=== PATIENT | female | born 1985 | race Caucasian/White ===

== ENCOUNTER 2017-01-21 19:47 | Emergency (ER) | payer OTHER ==
[~2017-01-21] VITALS: Ht 162.6 cm; Wt 109.1 kg
[2017-01-21] MEDS ORDERED: HUMLIS7525 SQ (20:09)
[2017-01-21] MEDS ORDERED: LISI-662 PO (20:09)
[2017-01-21] MEDS ORDERED: METF850T2 PO (20:09)
[2017-01-21] MEDS ORDERED: LEVE500T53 PO (20:09)
[2017-01-21] MEDS ORDERED: TOPI100T37 PO (20:09)
[2017-01-21] MEDS ORDERED: INSLAN SQ (20:09)
[2017-01-21 20:13] LABS: GLUCOSE COMMENT 1 Repeated; GLUCOSE,POINT OF CARE 535 MG/DL (70-110)
[2017-01-21 20:30] LABS: BASOPHILS % (AUTO) 0.3 % (0.0-2.0); EOSINOPHILS % (AUTO) 0.6 % (1.0-6.0); HEMATOCRIT 35.5 % (36-46); HEMOGLOBIN 12.3 g/dL (12.0-16.0); LYMPHOCYTES # (AUTO) 2.3 K/uL (1.0-4.8); LYMPHOCYTES % (AUTO) 30.2 % (22.0-44.0); MEAN CORPUSCULAR HEMOGLOBIN 29.6 pg (26.0-34.0); MEAN CORPUSCULAR HGB CONC 34.6 G/dL (31.0-37.0); MEAN CORPUSCULAR VOLUME 86 fL (80-100); MONOCYTES # (AUTO) 0.5 K/uL (0.1-1.0); MONOCYTES % (AUTO) 5.9 % (2.0-9.0); NEUTROPHILS # (AUTO) 4.8 K/uL (1.8-7.7); PLATELET COUNT (AUTO) 196 K/uL (150-450); RED BLOOD CELL COUNT(AUTO) 4.14 MIL/uL (4.00-5.20); RED CELL DISTRIBUTION WIDTH 13.7 % (11.5-14.5); WHITE BLOOD COUNT (AUTO) 7.7 K/uL (4.5-11.0)
[2017-01-21 21:19] LABS: APPEARANCE,URINE CLEAR (CLEAR); GLUCOSE, URINE (UA) >=1000 mg/dL (NEGATIVE); KETONES,URINE NEGATIVE (NEGATIVE); LEUKOCYTE ESTERASE ,URINE NEGATIVE (NEGATIVE); OCCULT BLOOD,URINE NEGATIVE (NEGATIVE); PROTEIN,URINE NEGATIVE (NEGATIVE)
[2017-01-21 21:23] LABS: ADD UA MICROSCOPIC YES
[2017-01-21 21:26] LABS: ALBUMIN 3.6 g/dL (3.4-5.0); BILIRUBIN,TOTAL 0.3 mg/dL (0.1-1.0); CREATININE 1.14 mg/dL (0.60-1.30); POTASSIUM 4.9 mmol/L (3.5-5.1); TOTAL PROTEIN, SERUM 7.5 g/dL (6.4-8.2)
[2017-01-21 21:40] LABS: SQUAMOUS EPITHELIAL CELL,UR Few /LPF (None Seen)
[2017-01-21 21:42] LABS: RBC,URINE 0-2 /HPF (0-2); WBC,URINE 0-2 /HPF (0-5)
[2017-01-21] MEDS ORDERED: INSULIN REGULAR, HUMAN 100 UNITS/ML SQ ONE (22:45)
[2017-01-22 00:28] LABS: GLUCOSE,POINT OF CARE 488 MG/DL (70-110)
[2017-01-22 00:34] VITALS: BP 135/90
== END 2017-01-22 00:37 | disposition home or self-care (01) ==
LOC: EMS 19:50
DX: R10.9 Unspecified abdominal pain (principal); E11.65 Type 2 diabetes mellitus with hyperglycemia; I10 Essential (primary) hypertension; Z79.4 Long term (current) use of insulin; Z87.442 Personal history of urinary calculi
CPT/HCPCS: 36415; 80053; 81001; 82962; 84703; 85025; 87086; 96372; 99284; J1815

== ENCOUNTER 2017-07-30 10:02 | Emergency (ER) | payer OTHER ==
[~2017-07-30] VITALS: Ht 162.6 cm; Wt 10.1 kg
[~2017-07-30 10:02] MED LIST: HUMLIS7525 SQ; INSLAN SQ; LEVE500T53 PO; LISI-662 PO; METF850T2 PO; TOPI100T37 PO
[2017-07-30] MEDS ORDERED: ENOX30DI5 SQ (10:10)
[2017-07-30] MEDS ORDERED: SODIUM CHLORIDE 0.9% 1,000 ML IV ONE (10:30)
[2017-07-30] MEDS ORDERED: LevETIRAcetam 1,000 MG in DEXTROSE 5%-WATER 100 ML IV ONE (10:30)
[2017-07-30] MEDS ORDERED: TraMADol HCL 50 MG TABLET PO ONE (10:30)
[2017-07-30] MEDS ORDERED: INSULIN REGULAR, HUMAN 100 UNITS/ML IVP ONE (10:30)
[2017-07-30 10:51] LABS: AMPHET/METH SCREEN,URINE NEGATIVE (NEGATIVE); BARBITURATE SCREEN, URINE NEGATIVE (NEGATIVE); BENZODIAZEPINES SCREEN,URINE NEGATIVE (NEGATIVE); CANNABINOID SCREEN,URINE NEGATIVE (NEGATIVE); COCAINE SCREEN,URINE NEGATIVE (NEGATIVE); METHADONE SCREEN, URINE NEGATIVE (NEGATIVE); OPIATE SCREEN,URINE NEGATIVE (NEGATIVE); PHENCYCLIDINE SCREEN,URINE NEGATIVE (NEGATIVE)
[2017-07-30 11:44] LABS: BASOPHILS % (AUTO) 0.7 % (0.0-2.0); EOSINOPHILS % (AUTO) 0.9 % (1.0-6.0); HEMATOCRIT 35.3 % (36-46); LYMPHOCYTES # (AUTO) 1.7 K/uL (1.0-4.8); LYMPHOCYTES % (AUTO) 27.2 % (22.0-44.0); MEAN CORPUSCULAR HEMOGLOBIN 28.7 pg (26.0-34.0); MEAN CORPUSCULAR VOLUME 85 fL (80-100); MONOCYTES # (AUTO) 0.4 K/uL (0.1-1.0); MONOCYTES % (AUTO) 6.2 % (2.0-9.0); PLATELET COUNT (AUTO) 182 K/uL (150-450); RED BLOOD CELL COUNT(AUTO) 4.18 MIL/uL (4.00-5.20); RED CELL DISTRIBUTION WIDTH 14.4 % (11.5-14.5)
[2017-07-30 11:50] LABS: ALANINE AMINOTRANSFERASE 68 U/L (12-78); ALBUMIN 3.2 g/dL (3.4-5.0); ALKALINE PHOSPHATASE 178 U/L (46-116); ANION GAP 9 mmol/L (8-16); ASPARTATE AMINOTRANSFERASE 39 U/L (15-37); BILIRUBIN,TOTAL 0.3 mg/dL (0.1-1.0); CALCIUM, TOTAL 9.2 mg/dL (8.8-10.5); CARBON DIOXIDE 25 mmol/L (22-29); CHLORIDE 98 mmol/L (98-107); GLOMERULAR FILTR. RATE CALC > 60 mL/min (>60); POTASSIUM 4.9 mmol/L (3.5-5.1); SODIUM SERUM 132 mmol/L (136-145); TOTAL PROTEIN, SERUM 7.2 g/dL (6.4-8.2); UREA NITROGEN, BLOOD 11 mg/dL (7-18)
[2017-07-30 12:00] LABS: GLUCOSE,RANDOM 520 mg/dL (70-110)
[2017-07-30] MEDS ORDERED: ONDANSETRON HCL 4 MG/2 ML VIAL IVP ONE (13:00)
[2017-07-30 13:43] VITALS: BP 121/77
[2017-07-30 14:08] LABS: GLUCOSE,POINT OF CARE 316 MG/DL (70-110)
[2017-07-30 14:08] LABS: GLUCOSE,POINT OF CARE 529 MG/DL (70-110)
== END 2017-07-30 13:55 | disposition home or self-care (01) ==
LOC: EMS 10:05
DX: G40.909 Epilepsy, unspecified, not intractable, without status epilepticus (principal); E11.65 Type 2 diabetes mellitus with hyperglycemia; I10 Essential (primary) hypertension; Z79.4 Long term (current) use of insulin; Z88.6 Allergy status to analgesic agent; Z88.8 Allergy status to other drugs, medicaments and biological substances
CPT/HCPCS: 36415; 70450; 80053; 80307; 82948; 82962; 84703; 85025; 93005; 96374; 96375; 99285; J0712; J1815; J2405; J7030; J7060

== ENCOUNTER 2017-08-31 16:45 | Emergency (ER) | payer OTHER ==
[~2017-08-31] VITALS: Ht 162.6 cm; Wt 116.8 kg
[~2017-08-31 16:45] MED LIST changes: +ENOX30DI5 SQ
[2017-08-31 17:07] LABS: GLUCOSE,POINT OF CARE > 600 MG/DL (70-110)
[2017-08-31 17:56] LABS: APPEARANCE,URINE CLEAR (CLEAR); BILIRUBIN,URINE NEGATIVE (NEGATIVE); GLUCOSE, URINE (UA) >=1000 mg/dL (NEGATIVE); KETONES,URINE NEGATIVE (NEGATIVE); LEUKOCYTE ESTERASE ,URINE NEGATIVE (NEGATIVE); NITRATE,URINE NEGATIVE (NEGATIVE); OCCULT BLOOD,URINE NEGATIVE (NEGATIVE); PROTEIN,URINE NEGATIVE (NEGATIVE); UROBILINOGEN,URINE 0.2 mg/dL (<=1.0)
[2017-08-31] MEDS ORDERED: SODIUM CHLORIDE 0.9% 1,000 ML IV ONE ×2 (18:00→18:30)
[2017-08-31 18:05] LABS: BASOPHILS % (AUTO) 0.2 % (0.0-2.0); EOSINOPHILS % (AUTO) 0.7 % (1.0-6.0); HEMATOCRIT 34.8 % (36-46); HEMOGLOBIN 11.9 g/dL (12.0-16.0); LYMPHOCYTES # (AUTO) 1.1 K/uL (1.0-4.8); LYMPHOCYTES % (AUTO) 17.6 % (22.0-44.0); MEAN CORPUSCULAR HEMOGLOBIN 28.8 pg (26.0-34.0); MEAN CORPUSCULAR HGB CONC 34.3 G/dL (31.0-37.0); MEAN CORPUSCULAR VOLUME 84 fL (80-100); MONOCYTES # (AUTO) 0.4 K/uL (0.1-1.0); MONOCYTES % (AUTO) 5.9 % (2.0-9.0); NEUTROPHILS # (AUTO) 4.6 K/uL (1.8-7.7); NEUTROPHILS % (AUTO) 75.6 % (40.0-70.0); PLATELET COUNT (AUTO) 179 K/uL (150-450); RED BLOOD CELL COUNT(AUTO) 4.14 MIL/uL (4.00-5.20); RED CELL DISTRIBUTION WIDTH 13.7 % (11.5-14.5)
[2017-08-31 18:21] LABS: BACTERIA,URINE None Seen /HPF (None Seen); RBC,URINE None Seen /HPF (0-2); SQUAMOUS EPITHELIAL CELL,UR Rare /LPF (None Seen); WBC,URINE 0-2 /HPF (0-5)
[2017-08-31] MEDS ORDERED: INSULIN REGULAR, HUMAN 100 UNITS/ML IVP ONE (18:30)
[2017-08-31 18:33] LABS: ALANINE AMINOTRANSFERASE 62 U/L (12-78); ALKALINE PHOSPHATASE 147 U/L (46-116); ANION GAP 6 mmol/L (8-16); ASPARTATE AMINOTRANSFERASE 35 U/L (15-37); BILIRUBIN,TOTAL 0.3 mg/dL (0.1-1.0); CALCIUM, TOTAL 8.8 mg/dL (8.8-10.5); CARBON DIOXIDE 27 mmol/L (22-29); CHLORIDE 100 mmol/L (98-107); CREATININE 0.98 mg/dL (0.60-1.30); GLOMERULAR FILTR. RATE CALC > 60 mL/min (>60); HCG,QUANTITATIVE < 1 mIU/mL (0-6); POTASSIUM 4.4 mmol/L (3.5-5.1); SODIUM SERUM 133 mmol/L (136-145); TOTAL PROTEIN, SERUM 7.1 g/dL (6.4-8.2); UREA NITROGEN, BLOOD 8 mg/dL (7-18)
[2017-08-31] MEDS ORDERED: ONDANSETRON HCL 4 MG/2 ML VIAL IVP ONE (18:45)
[2017-08-31 18:53] LABS: ACETONE,BLOOD NEGATIVE (NEGATIVE)
[2017-08-31 19:00] LABS: GLUCOSE,RANDOM 562 mg/dL (70-110)
[2017-08-31 19:04] LABS: OSMOLALITY 318 mOS/kg (270-310)
[2017-08-31] MEDS ORDERED: FentaNYL CITRATE-PF 100 MCG/2 ML VIAL IVP ONE (19:15)
[2017-08-31 21:12] LABS: GLUCOSE,POINT OF CARE 291 MG/DL (70-110)
[2017-08-31] MEDS ORDERED: DIPHENOXYLATE/ATROP 2.5-0.025 MG TABLET PO ONE (21:15)
[2017-08-31] MEDS ORDERED: HYDROmorphone 2 MG/ML SYRINGE IVP ONE (21:15)
[2017-08-31 21:47] VITALS: BP 136/89
== END 2017-08-31 21:49 | disposition home or self-care (01) ==
LOC: EMS 16:50
DX: E10.65 Type 1 diabetes mellitus with hyperglycemia (principal); I10 Essential (primary) hypertension; Z79.4 Long term (current) use of insulin; Z88.6 Allergy status to analgesic agent; Z88.8 Allergy status to other drugs, medicaments and biological substances
CPT/HCPCS: 36415; 80053; 81001; 82009; 82962; 83930; 84702; 85025; 96361; 96374; 96375; 99285; J1170; J1815; J2405; J3010; J7030

== ENCOUNTER 2017-09-20 14:13 | Emergency (ER) | payer MEDICAID, OTHER ==
[~2017-09-20] VITALS: Ht 162.6 cm; Wt 100.0 kg
[2017-09-20 14:33] LABS: GLUCOSE,POINT OF CARE 500 MG/DL (70-110)
[2017-09-20] MEDS ORDERED: TOPI100T37 PO (14:46)
[2017-09-20] MEDS ORDERED: TOPI25 PO (15:11)
[2017-09-20] MEDS ORDERED: METF500T6 PO (15:11)
[2017-09-20 15:14] LABS: BASOPHILS % (AUTO) 0.3 % (0.0-2.0); EOSINOPHILS % (AUTO) 0.3 % (1.0-6.0); HEMATOCRIT 35.9 % (36-46); HEMOGLOBIN 12.3 g/dL (12.0-16.0); LYMPHOCYTES # (AUTO) 2.3 K/uL (1.0-4.8); LYMPHOCYTES % (AUTO) 28.5 % (22.0-44.0); MEAN CORPUSCULAR HEMOGLOBIN 29.1 pg (26.0-34.0); MEAN CORPUSCULAR HGB CONC 34.4 G/dL (31.0-37.0); MEAN CORPUSCULAR VOLUME 85 fL (80-100); MONOCYTES # (AUTO) 0.4 K/uL (0.1-1.0); MONOCYTES % (AUTO) 4.9 % (2.0-9.0); NEUTROPHILS # (AUTO) 5.4 K/uL (1.8-7.7); PLATELET COUNT (AUTO) 210 K/uL (150-450); RED BLOOD CELL COUNT(AUTO) 4.25 MIL/uL (4.00-5.20); RED CELL DISTRIBUTION WIDTH 14.1 % (11.5-14.5)
[2017-09-20] MEDS ORDERED: SODIUM CHLORIDE 0.9% 1,000 ML IV ONE ×2 (15:15→16:45)
[2017-09-20] MEDS ORDERED: LevETIRAcetam 500 MG TABLET PO ONE (15:15)
[2017-09-20] MEDS ORDERED: TOPIRAMATE 25 MG TABLET PO ONE (15:15)
[2017-09-20 15:30] LABS: ALANINE AMINOTRANSFERASE 73 U/L (12-78); ALBUMIN 3.3 g/dL (3.4-5.0); ALKALINE PHOSPHATASE 142 U/L (46-116); ANION GAP 10 mmol/L (8-16); ASPARTATE AMINOTRANSFERASE 46 U/L (15-37); BILIRUBIN,TOTAL 0.4 mg/dL (0.1-1.0); CALCIUM, TOTAL 8.9 mg/dL (8.8-10.5); CARBON DIOXIDE 25 mmol/L (22-29); CHLORIDE 97 mmol/L (98-107); CREATININE 0.95 mg/dL (0.60-1.30); GLOMERULAR FILTR. RATE CALC > 60 mL/min (>60); POTASSIUM 4.1 mmol/L (3.5-5.1); SODIUM SERUM 132 mmol/L (136-145); TOTAL PROTEIN, SERUM 7.2 g/dL (6.4-8.2); UREA NITROGEN, BLOOD 9 mg/dL (7-18)
[2017-09-20 15:33] LABS: GLUCOSE,RANDOM 511 mg/dL (70-110)
[2017-09-20 16:09] LABS: APPEARANCE,URINE CLEAR (CLEAR); BILIRUBIN,URINE NEGATIVE (NEGATIVE); GLUCOSE, URINE (UA) >=1000 mg/dL (NEGATIVE); KETONES,URINE NEGATIVE (NEGATIVE); LEUKOCYTE ESTERASE ,URINE SMALL (NEGATIVE); NITRATE,URINE NEGATIVE (NEGATIVE); OCCULT BLOOD,URINE LARGE (NEGATIVE); PROTEIN,URINE NEGATIVE (NEGATIVE); UROBILINOGEN,URINE 0.2 mg/dL (<=1.0)
[2017-09-20 16:18] LABS: BACTERIA,URINE Few /HPF (None Seen); SQUAMOUS EPITHELIAL CELL,UR Few /LPF (None Seen)
[2017-09-20] MEDS ORDERED: INSULIN LISPRO 100 UNITS/ML SQ ONE (16:45)
[2017-09-20 17:00] VITALS: BP 129/88
[2017-09-20 17:08] LABS: GLUCOSE,POINT OF CARE 446 MG/DL (70-110)
[2017-09-20] MEDS ORDERED: TraMADol HCL 50 MG TABLET PO ONE (17:15)
[2017-09-20 18:18] LABS: GLUCOSE,POINT OF CARE 402 MG/DL (70-110)
== END 2017-09-20 18:34 | disposition home or self-care (01) ==
LOC: EMS 14:15
DX: G40.909 Epilepsy, unspecified, not intractable, without status epilepticus (principal); E10.65 Type 1 diabetes mellitus with hyperglycemia; R11.2 Nausea with vomiting, unspecified; R10.9 Unspecified abdominal pain; I10 Essential (primary) hypertension; Z79.4 Long term (current) use of insulin; Z88.6 Allergy status to analgesic agent; Z88.8 Allergy status to other drugs, medicaments and biological substances
CPT/HCPCS: 36415; 80053; 81001; 82010; 82962; 85025; 96360; 96361; 96372; 99284; J7030; J1815